=== PATIENT | male | born 1945 | race Two or more races ===

== ENCOUNTER 2020-08-20 12:13 | Emergency (ER) | payer MEDICARE ==
[~2020-08-20] VITALS: Ht 177.8 cm; Wt 106.4 kg
[2020-08-20 13:11] VITALS: BP 135/70
[2020-08-20] MEDS ORDERED: ceFAZolin 1gm IM kit IM ONE (15:25)
[2020-08-20] MEDS ORDERED: SULF1TAB45 PO (15:25)
== END 2020-08-20 15:38 | disposition home or self-care (01) ==
LOC: ER 12:14
DX: S90.851A Superficial foreign body, right foot, initial encounter (principal); E10.9 Type 1 diabetes mellitus without complications; Z79.899 Other long term (current) drug therapy; W45.8XXA Other foreign body or object entering through skin, initial encounter; Y93.89 Activity, other specified; Y92.89 Other specified places as the place of occurrence of the external cause; Y99.8 Other external cause status
CPT/HCPCS: 96372; 99283; J0690